=== PATIENT | male | born 1965 | race Caucasian/White ===

== ENCOUNTER 2017-05-27 18:48 | Emergency (ER) | payer OTHER ==
[~2017-05-27] VITALS: Ht 175.3 cm; Wt 97.5 kg
[2017-05-27 19:45] VITALS: BP 122/74
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
[2017-05-27] MEDS ORDERED: traMADol 50 MG TABLET PO ONE (21:00)
[2017-05-27] MEDS ORDERED: CYCLOBENZAPRINE 10 MG TABLET. PO ONE (21:00)
[2017-05-27] MEDS ORDERED: KETOROLAC 30 MG/ML VIAL. IM ONE (21:00)
[2017-05-27] MEDS ORDERED: TRAM-48 PO (21:19)
[2017-05-27] MEDS ORDERED: CYCL-331 PO (21:19)
[2017-05-27] MEDS ORDERED: IBUP600T16 PO (21:19)
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
== END 2017-05-27 21:30 | disposition home or self-care (01) ==
LOC: ER 18:48
DX: S16.1XXA Strain of muscle, fascia and tendon at neck level, initial encounter (principal); M54.5 Low back pain; I10 Essential (primary) hypertension; R19.7 Diarrhea, unspecified; R07.9 Chest pain, unspecified; R11.2 Nausea with vomiting, unspecified; V49.9XXA Car occupant (driver) (passenger) injured in unspecified traffic accident, initial encounter; Y93.89 Activity, other specified; Y99.8 Other external cause status; Y92.410 Unspecified street and highway as the place of occurrence of the external cause
CPT/HCPCS: 72100; 72125; 96372; 99284; J1885

== ENCOUNTER 2017-06-22 15:29 | Emergency (ER) | payer OTHER ==
[~2017-06-22] VITALS: Ht 175.3 cm; Wt 97.5 kg
[~2017-06-22 15:29] MED LIST: CYCL-331 PO; IBUP600T16 PO; TRAM-48 PO
[2017-06-22 15:43] VITALS: BP 129/81
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
[2017-06-22] MEDS ORDERED: NAPR500T8 PO (16:17)
[2017-06-22] MEDS ORDERED: CYCL-331 PO (16:17)
[2017-06-22] MEDS ORDERED: TRAM-48 PO (16:17)
== END 2017-06-22 16:21 | disposition other institution (70) ==
LOC: ER 15:29
DX: S29.012D Strain of muscle and tendon of back wall of thorax, subsequent encounter (principal); I10 Essential (primary) hypertension; V89.2XXD Person injured in unspecified motor-vehicle accident, traffic, subsequent encounter
CPT/HCPCS: 99285-25

== ENCOUNTER 2017-11-04 03:19 | Emergency (ER) | payer OTHER ==
[~2017-11-04] VITALS: Ht 175.3 cm; Wt 96.0 kg
[~2017-11-04 03:19] MED LIST changes: +NAPR500T8 PO
--- NOTE | 2017-11-04 03:35 | PHYS DOC ---
Past History Past Medical History: Hypertension Past Surgical History: No Surgical History Smoking: Non-smoker Alcohol Use: None Drug Use: None Adult General HPI HPI Patient is a 52 year old M who presents with abdominal pain and diarrhea for the past 3 days. Patient states that on Thursday he developed severe diarrhea with a fever of 101. Patient states Thursday Better but was still having diarrhea over today it got worse and tonight he was going about every 15 minutes. Patient complains of general has abdominal pain. Patient denies any nausea. Patient states he's had hot and cold flashes at home. Patient denies any dysuria. Patient's previous abdominal surgeries was appendicitis. Patient has no other complaints. Review of Systems Review of Systems GEN: Denies fevers, chills, sweats HEENT: Denies blurred vision, sore throat CV: Denies chest pain RESP: Denies shortness of air, cough GI: Abdominal pain with diarrhea NEURO: Denies confusion, dizziness MSK: Denies weakness, joint pain/swelling All other systems were reviewed and found to be within normal limits, except as documented in this note. Allergies Allergies Allergies Coded Allergies Type Severity Reaction Last Updated Verified No Known Drug Allergies 05/27/17 No Physical Exam Physical Exam GEN.: Mild distress. Alert and oriented. HEENT: Head is normocephalic, atraumatic NECK: Supple. LUNGS: CTAB. HEART: RRR, S1, S2 present. Peripheral pulses intact ABDOMEN: Soft, mild generalized lower abdominal tenderness without rebound tenderness,no guarding and no abdominal distention. Positive bowel sounds. EXTREMITIES: Without any cyanosis. NEUROLOGIC: Normal speech, normal tone PSYCHIATRIC: Normal affect, normal mood. SKIN: No ulcerations EKG EKG [] Radiology/Procedures Radiology/Procedures CT abd and pelvis: IMPRESSION: Diverticula in the sigmoid colon with suggestion of some mild inflammatory changes adjacent to a diverticulum in the proximal sigmoid colon. Cannot exclude focal diverticulitis.[] Course & Med Decision Making Course & Med Decision Making Pertinent Labs and Imaging studies reviewed. (See chart for details) ED course: Patient was seen and examined emergency room abdominal workup was ordered along with a CT scan abdomen and pelvis Lactic acid was normal On reevaluation updated patient on lab results and CT findings. Explained to the patient that he is acute diverticulitis and that he will be discharged home with antibiotics Cipro and Flagyl. I recommended he follow-up with his PCP in the next one to 2 days and discussed scheduling a follow-up colonoscopy. On reevaluation patient was feeling much better and states his abdominal pain has resolved. Recommended if symptoms get worse to return immediately to the emergency room. MDM: After reviewing the chart, CC/HPI/PMH, physical exam, [lab results], [ radiological results], I do not believe the patient has an intra-abdominal emergency warranting further workup and/or admission at this time. Patient has simple acute diverticulitis with no perforation or abscess requiring intervention at this time. Patient is stable to be discharged home with oral antibiotics and short-term follow-up with his PCP. Recommended patient get a colonoscopy in the near future. Additional verbal discharge instructions were provided to the patient and that if symptoms get worse or any new symptoms arise that are worrisome to the patient he is to return to the emergency room immediately [] Dragon Disclaimer Dragon Disclaimer This electronic medical record was generated, in whole or in part, using a voice recognition dictation system. Departure Departure: Impression: Primary Impression: Diverticulitis Additional Impression: Diarrhea Disposition: 01 HOME, SELF-CARE Condition: IMPROVED Referrals: ISABELL MACHADO DO (PCP) Patient Instructions: Diverticulitis Additional Instructions: Please follow-up with your family doctor in the next one to 2 days for further evaluation and management and please schedule a follow-up colonoscopy and return if symptoms increase Scripts Ciprofloxacin Hcl (CIPRO) 500 Mg Tablet 1 TAB PO BID for 7 Days, #14 TAB Prov: ARTIE NAVARRETE DO 11/04/17 Metronidazole (FLAGYL) 500 Mg Tablet 1 TAB PO TID for 7 Days, #21 TAB Prov: ARTIE NAVARRETE DO 11/04/17 Problem Qualifiers ARTIE NAVARRETE DO Nov 04, 2017 03:35
[2017-11-04] MEDS ORDERED: ONDANSETRON PF 4 MG/2 ML VIAL. IV ONE (03:45)
[2017-11-04] MEDS ORDERED: FAMOTIDINE 20 MG/2 ML VIAL IVP ONE (03:45)
[2017-11-04] MEDS ORDERED: IV NORMAL SALINE 1,000ML 1,000 ML IV ONE (03:45)
[2017-11-04 03:54] LABS: BASO % 0 % (0-3); EOS # 0.2 x10^3/uL (0.0-0.7); EOS % 2 % (0-3); HEMATOCRIT 42.2 % (39.0-53.0); HEMOGLOBIN 13.8 g/dL (13.0-17.5); LYMPH # 2.2 x10^3/uL (1.0-4.8); LYMPH % 25 % (24-48); MEAN CORPUSCULAR HEMOGLOBIN 26 pg (25-35); MEAN CORPUSCULAR HGB CONC 33 g/dL (31-37); MEAN CORPUSCULAR VOLUME 80 fL (79-100); MONO # 0.8 x10^3/uL (0.0-1.1); MONO % 9 % (0-9); NEUT # 5.5 x10^3uL (1.8-7.7); NEUT % 63 % (31-73); PLATELET COUNT 261 x10^3/uL (140-400); RED BLOOD COUNT 5.26 x10^6/uL (4.30-5.70); RED CELL DISTRIBUTION WIDTH 14.8 % (11.5-14.5); WHITE BLOOD COUNT 8.7 x10^3/uL (4.0-11.0)
[2017-11-04] MEDS ORDERED: CONTRAST GIVEN MC PRN (04:15)
[2017-11-04] MEDS ORDERED: IOHEXOL 300 MG/ML 75 ML VIAL. IV ONE (04:15)
[2017-11-04 04:24] LABS: ALBUMIN 3.5 g/dL (3.4-5.0); ALBUMIN/GLOBULIN RATIO 0.9 (1.0-1.7); CALCIUM 8.6 mg/dL (8.5-10.1); CREATININE 1.2 mg/dL (0.7-1.3); GFR 63.1; POTASSIUM 3.6 mmol/L (3.5-5.1); TOTAL BILIRUBIN 0.3 mg/dL (0.2-1.0); TOTAL PROTEIN 7.5 g/dL (6.4-8.2)
--- NOTE | 2017-11-04 05:14 | RAD ---
CT abdomen and pelvis with contrast: Reason for examination: Abdominal pain and diarrhea. Helical images were obtained through the abdomen and pelvis with intravenous administration of 75 cc Omnipaque 300. Reconstruction was performed in sagittal and coronal planes. The lung bases are clear. The heart size is normal with no pericardial effusion. No abnormality seen at the liver, gallbladder, adrenal glands, pancreas or spleen. The abdominal aorta and inferior vena cava show no abnormalities. The kidneys show no renal masses, renal calculi, hydronephrosis or evidence of obstructive uropathy. The intestinal tract shows no abnormally dilated small bowel. The colon shows presence of diverticuli in the sigmoid colon and there is suggestion of some mild inflammatory changes adjacent to a diverticulum in the proximal sigmoid colon which may reflect some focal diverticulitis. Recommend clinical correlation and follow-up.. The appendix is surgically absent. No bowel obstruction is seen. No abnormality seen at the bladder, prostate gland or seminal vesicles. No acute bony abnormalities are seen. IMPRESSION: Diverticula in the sigmoid colon with suggestion of some mild inflammatory changes adjacent to a diverticulum in the proximal sigmoid colon. Cannot exclude focal diverticulitis. Exposure: One or more of the following individualized dose reduction techniques were utilized for this examination: 1. Automated exposure control 2. Adjustment of the mA and/or kV according to patient size 3. Use of iterative reconstruction technique. Electronically signed by: Mendy Belle MD (11/04/2017 5:10 AM) [facility]
[2017-11-04] MEDS ORDERED: CIPR500T94 PO (05:40)
[2017-11-04] MEDS ORDERED: METR500T PO (05:40)
[2017-11-04 05:45] VITALS: BP 136/79
== END 2017-11-04 05:45 | disposition home or self-care (01) ==
LOC: ER 03:19
DX: K57.30 Diverticulosis of large intestine without perforation or abscess without bleeding (principal); R19.7 Diarrhea, unspecified; I10 Essential (primary) hypertension
CPT/HCPCS: 36415; 74177; 80053; 83605; 83690; 85025; 96361; 96374; 96375; 99285; J2405; Q9967; S0028; J7030

== ENCOUNTER → 2018-05-27 | Outpatient (CLI) | payer OTHER ==
[~2018-05-27] MED LIST changes: +CIPR500T94 PO; +IOHEXOL 240 MG/ML 50ML VIAL. ONE; +IOHEXOL 300 MG/ML 75 ML VIAL. IV ONE; +METR500T PO
--- NOTE | 2018-05-27 10:40 | RAD ---
EXAM: CT Abdomen and Pelvis with IV contrast CLINICAL HISTORY: ABDOMINAL PAIN WITH HX OF DIVERTICULITIS. COMPARISON: 11/04/2017 TECHNIQUE: Helical CT of the abdomen and pelvis was performed following the administration of intravenous contrast. Oral contrast was administered. Axial, coronal and sagittal reformatted images were generated. PQRS compliance statement - One or more of the following individualized dose reduction techniques were utilized for this study: 1. Automated exposure control 2. Adjustment of the mA and/or kV according to patient size 3. Use of iterative reconstruction technique FINDINGS: Lower chest: Lung bases are clear Abdomen and Pelvis: Relative hypoattenuation of the liver to the spleen may be seen with fatty liver. No focal liver lesion. Focal fatty sparing in the gallbladder fossa. Gallbladder is unremarkable. No biliary ductal dilatation. Pancreas is unremarkable. Spleen is normal. Adrenal glands are unremarkable. Symmetric nephrograms. Subcentimeter hypodense left lower pole renal calculus. No hydronephrosis. Retroaortic left renal vein. Colonic diverticulosis without CT evidence for acute diverticulitis. No free or loculated abdominal or pelvic fluid collection is seen. Appendix is not seen however no significant right lower quadrant inflammatory changes are seen. The bladder is unremarkable. Prostate measures 5 cm in transverse dimension. Bones: Degenerative changes of the spine are seen. No evidence for acute fracture or subluxation. Right iliac wing sclerotic focus, likely bone island. IMPRESSION: 1. Colonic diverticulosis without CT evidence for acute diverticulitis. 2. No free or loculated fluid collection is identified. 3. No evidence for bowel obstruction Electronically signed by: Aron Martin MD (05/27/2018 10:37 AM) [facility]
== END | disposition home or self-care (01) ==
LOC: CT 08:44
PROVIDERS: ATTEND Family Medicine
DX: K57.30 Diverticulosis of large intestine without perforation or abscess without bleeding (principal); N20.0 Calculus of kidney
CPT/HCPCS: 74177; Q9966; Q9967